=== PATIENT | male | born 1970 | race Caucasian/White ===

== ENCOUNTER 2021-10-04 08:17 | Emergency (ER) | payer OTHER ==
[~2021-10-04] VITALS: Ht 177.8 cm; Wt 136.5 kg
[2021-10-04 10:57] LABS: BASOPHILS % 1.2 % (0.0-2.0); EOSINOPHILS % 2.5 % (0.0-5.0); HEMOGLOBIN. 14.7 g/dL (14.0-18.0); MEAN CORPUSCULAR HEMOGLOBIN 31.3 pg (28.0-32.0); MEAN CORPUSCULAR VOLUME 91.8 fL (80.0-94.0); MEAN PLATELET VOLUME 7.3 fl (7.4-10.4); NEUTROPHILS % 63.3 % (40.0-76.0); PLATELET 169 x1000/uL (130-400); RED BLOOD CELL COUNT 4.68 mill/uL (4.7-6.1); RED CELL DISTRIBUTION WIDTH 13.8 % (11.6-14.6)
[2021-10-04 11:01] LABS: CHLORIDE 106 mEq/L (98-107)
[2021-10-04] MEDS ORDERED: IOHEXOL-350 100 ML BOTTLE ONE (13:30)
[2021-10-04 13:52] VITALS: BP 128/65
== END 2021-10-04 15:03 | disposition home or self-care (01) ==
LOC: ER 08:17
DX: R06.00 Dyspnea, unspecified (principal); R07.89 Other chest pain
CPT/HCPCS: 36415; 71045; 71275; 80053; 83880; 84484; 85025; 85379; 93005; 99285; Q9967